=== PATIENT | male | born 1970 | race African-American/Black ===

== ENCOUNTER 2016-12-30 03:21 | Emergency (ER) | payer MEDICAID ==
[~2016-12-30] VITALS: Ht 172.7 cm; Wt 89.9 kg
[~2016-12-30 03:21] MED LIST: GLIP5TAB10 PO; METF10002 PO
[2016-12-30] MEDS ORDERED: ONDANSETRON 2MG/ML, 2ML IVPush ONE (03:30)
[2016-12-30] MEDS ORDERED: SODIUM CHLORIDE 0.9% 1,000ML IVBOLUS ONE (03:30)
[2016-12-30] MEDS ORDERED: SODIUM CHLORIDE FLUSH 10ML SYR IVF ONE (03:30)
[2016-12-30] MEDS ORDERED: ONDANSETRON 2MG/ML, 2ML ONE (03:31)
[2016-12-30 03:42] LABS: PH, VENOUS 7.347 pH (7.320-7.420)
[2016-12-30 03:54] LABS: ASPARTATE AMINO TRANSFERASE 47 U/L (15-37); BLOOD UREA NITROGEN 9 mg/dL (7-18)
[2016-12-30 04:54] LABS: DAU SCREEN DISCLAIMER
[2016-12-30 06:06] VITALS: BP 112/64
== END 2016-12-30 06:14 | disposition home or self-care (01) ==
LOC: ED 05:32
DX: R10.13 Epigastric pain (principal); K85.90 Acute pancreatitis without necrosis or infection, unspecified; K29.20 Alcoholic gastritis without bleeding; E11.65 Type 2 diabetes mellitus with hyperglycemia
CPT/HCPCS: 36415; 74020; 76700; 80053; 80307; 81003; 82010; 82803; 83690; 85025; 93005; 96361; 96374; 99285; J2405; J7030

== ENCOUNTER 2019-07-26 01:48 | Emergency (ER) | payer MEDICAID ==
[~2019-07-26] VITALS: Ht 180.3 cm; Wt 90.0 kg
[2019-07-26 02:31] LABS: BASOPHILS # (AUTO) 0.05 x10^3/uL (0-0.1); BASOPHILS % (AUTO) 1 % (0-1); EOSINOPHILS # (AUTO) 0.32 x10^3/uL (0-0.4); EOSINOPHILS % (AUTO) 3 % (1-7); LYMPHOCYTES % (AUTO) 33 % (22-44); MD NO; MEAN CORPUSCULAR HEMOGLOBIN 32.3 pg (27.5-34.5); MEAN CORPUSCULAR VOLUME 94.8 fL (81-97); MEAN PLATELET VOLUME 8.2 fL (7.4-10.4); MONOCYTES # (AUTO) 0.87 x10^3/uL (0.2-0.8); MONOCYTES % (AUTO) 8 % (2-9); NEUTROPHILS # (AUTO) 6.39 x10^3/uL (1.8-6.8); NEUTROPHILS % (AUTO) 56 % (42-75); PLATELET COUNT 296 x10^3/uL (130-400); RED BLOOD COUNT 4.78 x10^6/uL (4.38-5.82); RED CELL DISTRIBUTION WIDTH 14.3 % (9.4-14.8)
[2019-07-26 02:42] LABS: ALANINE AMINOTRANSFERASE 33 U/L (12-78); ALBUMIN 3.2 g/dL (3.4-5.0); ANION GAP 10 mmol/L (5-15); CHLORIDE 107 mmol/L (98-107); CREATININE 0.73 mg/dL (0.7-1.3)
[2019-07-26 02:45] LABS: ALKALINE PHOSPHATASE 110 U/L (45-117); BILIRUBIN,TOTAL 0.3 mg/dL (0.2-1.0); TOTAL PROTEIN 6.8 g/dL (6.4-8.2)
[2019-07-26 03:50] VITALS: BP 107/57
== END 2019-07-26 06:07 | disposition home or self-care (01) ==
LOC: ED 03:29
DX: K29.20 Alcoholic gastritis without bleeding (principal); F10.120 Alcohol abuse with intoxication, uncomplicated; Z72.9 Problem related to lifestyle, unspecified; E11.65 Type 2 diabetes mellitus with hyperglycemia; F17.200 Nicotine dependence, unspecified, uncomplicated
CPT/HCPCS: 36415; 80053; 80307; 83690; 85025; 93005; 99284

== ENCOUNTER 2020-08-06 21:28 | Emergency (ER) | payer MEDICAID ==
[~2020-08-06] VITALS: Ht 175.3 cm; Wt 92.9 kg
[2020-08-06] MEDS ORDERED: ONDANSETRON 2MG/ML, 2ML IVPush ONE (22:00)
[2020-08-06] MEDS ORDERED: ONDANSETRON 2MG/ML, 2ML ONE (22:09)
[2020-08-06] MEDS ORDERED: MORPHINE SULFATE 4 MG/ML, 1ML ONE (22:10)
[2020-08-06] MEDS: MORPHINE SULFATE 4 MG/ML, 1ML IVPush PRN (22:14)
[2020-08-06 22:18] LABS: BASOPHILS % (AUTO) 1 % (0-1); EOSINOPHILS % (AUTO) 4 % (1-7); LYMPHOCYTES % (AUTO) 36 % (22-44); MEAN CORPUSCULAR HEMOGLOBIN 30.7 pg (27.5-34.5); MEAN CORPUSCULAR HGB CONC 34.5 g/dL (33.2-36.2); MEAN PLATELET VOLUME 8.3 fL (7.4-10.4); MONOCYTES % (AUTO) 8 % (2-9); NEUTROPHILS % (AUTO) 52 % (42-75); PLATELET COUNT 307 x10^3/uL (130-400); RED BLOOD COUNT 5.31 x10^6/uL (4.38-5.82); RED CELL DISTRIBUTION WIDTH 14.2 % (9.4-14.8)
[2020-08-06 22:27] LABS: ALANINE AMINOTRANSFERASE 41 U/L (12-78); ALBUMIN 4.2 g/dL (3.4-5.0); ANION GAP 6 mmol/L (5-15); CALCIUM 9.3 mg/dL (8.5-10.1); CHLORIDE 111 mmol/L (98-107); CREATININE 0.98 mg/dL (0.7-1.3); MD NO
[2020-08-06 22:29] LABS: ALKALINE PHOSPHATASE 87 U/L (45-117); BILIRUBIN,TOTAL 0.3 mg/dL (0.2-1.0); TOTAL PROTEIN 8.1 g/dL (6.4-8.2)
[2020-08-06] MEDS ORDERED: OMNIPAQUE 350 MG/ML, 100ML BOTTLE ONE (23:00)
[2020-08-07] MEDS ORDERED: MORPHINE SULFATE 4 MG/ML, 1ML ONE (00:03)
[2020-08-07] MEDS: MORPHINE SULFATE 4 MG/ML, 1ML IVPush PRN (00:06)
[2020-08-07 00:07] VITALS: BP 108/71
--- NOTE | 2020-08-07 00:08 | NUR ---
PT LAYING IN BED WITH FRIEND AT PT SIDE, PT REQUESTED A ADDITIONAL DOSE OF PAIN MED. PT ON MONITOR WITH VSS. PT MEDICATED PER MAR. PROVIDER NOTIFIED
== END 2020-08-07 00:46 | disposition home or self-care (01) ==
LOC: ED 23:52
DX: R10.84 Generalized abdominal pain (principal); R11.2 Nausea with vomiting, unspecified; R19.7 Diarrhea, unspecified; F17.210 Nicotine dependence, cigarettes, uncomplicated; E11.9 Type 2 diabetes mellitus without complications
CPT/HCPCS: 36415; 74177; 80053; 83690; 85025; 96374; 96375; 96376; 99285; 99406; J2270; J2405; Q9967

== ENCOUNTER 2020-08-11 07:46 | Outpatient (CLI) | payer MEDICAID | END 2020-08-11 23:59 | disposition home or self-care (01) | LOC: CFH 07:46 | PROVIDERS: ATTEND Registered Nurse | DX: K21.9 Gastro-esophageal reflux disease without esophagitis (principal); R10.9 Unspecified abdominal pain; R19.7 Diarrhea, unspecified; R11.0 Nausea; Z68.30 Body mass index [BMI] 30.0-30.9, adult | CPT/HCPCS: 74018 ==

== ENCOUNTER 2020-08-22 12:59 | Outpatient (CLI) | payer MEDICAID | END 2020-08-22 23:59 | disposition home or self-care (01) | LOC: RAD 12:59 | PROVIDERS: ATTEND Registered Nurse | DX: R19.7 Diarrhea, unspecified (principal); R10.9 Unspecified abdominal pain; R11.0 Nausea; K21.9 Gastro-esophageal reflux disease without esophagitis; Z68.30 Body mass index [BMI] 30.0-30.9, adult | CPT/HCPCS: 74018; 76700 ==

== ENCOUNTER 2020-09-26 17:05 | Emergency (ER) | payer MEDICAID ==
[~2020-09-26] VITALS: Ht 175.3 cm; Wt 92.6 kg
[2020-09-26] MEDS ORDERED: ACETAMINOPHEN 500 MG TABLET PO ONE (17:30)
[2020-09-26] MEDS ORDERED: PANTOPRAZOLE 20MG TABLET PO ONE (17:30)
[2020-09-26] MEDS ORDERED: SIMV10TA18 PO (17:36)
[2020-09-26] MEDS ORDERED: PANT20TA2 PO (17:36)
[2020-09-26] MEDS ORDERED: TERB250T14 PO (17:36)
[2020-09-26] MEDS ORDERED: ERGO500017 PO (17:36)
[2020-09-26] MEDS ORDERED: INSU100V8 SQ (17:36)
[2020-09-26] MEDS ORDERED: TADA10TA PO (17:36)
[2020-09-26] MEDS ORDERED: TAMS-11 PO (17:36)
[2020-09-26] MEDS ORDERED: DULO30CA2 PO (17:36)
[2020-09-26] MEDS ORDERED: CYCL7.5T25 PO (17:36)
[2020-09-26] MEDS ORDERED: PANTOPRAZOLE 40MG TABLET ONE (17:41)
[2020-09-26] MEDS ORDERED: ACETAMINOPHEN 500 MG TABLET ONE (17:41)
[2020-09-26 18:03] VITALS: BP 92/64
[2020-09-26 18:09] LABS: BASOPHILS % (AUTO) 1 % (0-1); EOSINOPHILS % (AUTO) 3 % (1-7); LYMPHOCYTES % (AUTO) 30 % (22-44); MD NO; MEAN CORPUSCULAR HEMOGLOBIN 30.9 pg (27.5-34.5); MEAN CORPUSCULAR HGB CONC 34.8 g/dL (33.2-36.2); MEAN PLATELET VOLUME 8.1 fL (7.4-10.4); MONOCYTES % (AUTO) 9 % (2-9); NEUTROPHILS % (AUTO) 57 % (42-75); PLATELET COUNT 311 x10^3/uL (130-400); RED BLOOD COUNT 4.57 x10^6/uL (4.38-5.82); RED CELL DISTRIBUTION WIDTH 14.1 % (9.4-14.8)
[2020-09-26 18:12] LABS: ALANINE AMINOTRANSFERASE 36 U/L (12-78); ALBUMIN 3.8 g/dL (3.4-5.0); ANION GAP 7 mmol/L (5-15); CALCIUM 8.9 mg/dL (8.5-10.1); CHLORIDE 105 mmol/L (98-107)
[2020-09-26 18:14] LABS: ALKALINE PHOSPHATASE 70 U/L (45-117); BILIRUBIN,TOTAL 0.3 mg/dL (0.2-1.0); TOTAL PROTEIN 7.4 g/dL (6.4-8.2)
[2020-09-26] MEDS ORDERED: MAALOX/HYOSCYAMINE/LIDOCAINE 45 ML BTL ONE (18:45)
[2020-09-26] MEDS ORDERED: LIDODERM 5% PATCH TD ONE ×2 (18:45→19:00)
--- NOTE | 2020-09-26 18:51 | NUR ---
Patient given discharge instructions and Rx, they have confirmed that they understand the instructions. Patient ambulatory with steady gait.
[2020-09-26] MEDS ORDERED: MAALOX/HYOSCYAMINE/LIDOCAINE 45 ML BTL PO ONE (19:00)
--- NOTE | 2020-09-26 19:01 | NUR ---
Pt agrees with and understands discharge plan and instructions.
== END 2020-09-26 19:04 | disposition home or self-care (01) ==
LOC: ED 18:30
DX: S39.012A Strain of muscle, fascia and tendon of lower back, initial encounter (principal); K92.0 Hematemesis; K29.01 Acute gastritis with bleeding; E11.9 Type 2 diabetes mellitus without complications; F17.210 Nicotine dependence, cigarettes, uncomplicated; X58.XXXA Exposure to other specified factors, initial encounter; Y93.89 Activity, other specified; Y92.89 Other specified places as the place of occurrence of the external cause; Y99.8 Other external cause status
CPT/HCPCS: 36415; 80053; 83690; 85025; 99284; 99406

== ENCOUNTER 2020-10-11 09:19 | Outpatient (CLI) | payer MEDICAID ==
[~2020-10-11 09:19] MED LIST changes: +CYCL7.5T25 PO; +DULO30CA2 PO; +ERGO500017 PO; +INSU100V8 SQ; +PANT20TA2 PO; +SIMV10TA18 PO; +TADA10TA PO; +TAMS-11 PO; +TERB250T14 PO
== END 2020-10-11 23:59 | disposition home or self-care (01) ==
LOC: RAD 09:19
PROVIDERS: ATTEND Registered Nurse
DX: Z02.9 Encounter for administrative examinations, unspecified (principal)

== ENCOUNTER → 2020-10-30 | Outpatient (CLI) | payer MEDICAID | END | disposition home or self-care (01) | LOC: RAD 10:30 | PROVIDERS: ATTEND Registered Nurse | DX: K22.2 Esophageal obstruction (principal); R10.9 Unspecified abdominal pain; K57.10 Diverticulosis of small intestine without perforation or abscess without bleeding; R19.7 Diarrhea, unspecified; K21.9 Gastro-esophageal reflux disease without esophagitis; K29.80 Duodenitis without bleeding; R13.10 Dysphagia, unspecified | CPT/HCPCS: 78264; 82962; A9541 ==

== ENCOUNTER 2020-11-25 14:06 | Emergency (ER) | payer MEDICAID ==
[~2020-11-25] VITALS: Ht 175.3 cm; Wt 97.0 kg
--- NOTE | 2020-11-25 14:30 | NUR ---
Pt complains of bilateral diabetic neuropathy and that his pain medication, gabapentin is ineffective. He has been a diabetic for 10 years. He states compliance with insulin and metformin.
[2020-11-25] MEDS ORDERED: GABA600T7 PO (14:35)
--- NOTE | 2020-11-25 14:35 | NUR ---
Seen by [facility] and had a recent ultrasound, and needs surgery to the right leg.
[2020-11-25] MEDS ORDERED: OXYcodone/APAP 10/325MG TABLET ONE (14:55)
--- NOTE | 2020-11-25 14:58 | NUR ---
Pt medicated for pain, plan of care discussed.
[2020-11-25] MEDS ORDERED: OXYcodone/APAP 10/325MG TABLET HOMEMEDPO ONE (15:00)
[2020-11-25 15:01] LABS: BASOPHILS % (AUTO) 1 % (0-1); EOSINOPHILS % (AUTO) 3 % (1-7); LYMPHOCYTES % (AUTO) 21 % (22-44); MEAN CORPUSCULAR HEMOGLOBIN 31.2 pg (27.5-34.5); MEAN CORPUSCULAR HGB CONC 34.5 g/dL (33.2-36.2); MEAN PLATELET VOLUME 7.9 fL (7.4-10.4); MONOCYTES % (AUTO) 8 % (2-9); NEUTROPHILS % (AUTO) 67 % (42-75); PLATELET COUNT 359 x10^3/uL (130-400); RED BLOOD COUNT 4.44 x10^6/uL (4.38-5.82); RED CELL DISTRIBUTION WIDTH 14.6 % (9.4-14.8)
[2020-11-25 15:02] LABS: MD NO
[2020-11-25 15:08] LABS: ANION GAP 6 mmol/L (5-15); CALCIUM 9.2 mg/dL (8.5-10.1); CHLORIDE 107 mmol/L (98-107); CREATININE 1.02 mg/dL (0.7-1.3)
[2020-11-25 15:11] LABS: INTERNATIONAL NORMALIZED RATIO 0.91 (0.93-1.1); PROTHROMBIN TIME 9.8 Seconds (9.6-11.5)
--- NOTE | 2020-11-25 16:03 | NUR ---
US completed, pending results.
[2020-11-25 16:09] VITALS: BP 122/79
--- NOTE | 2020-11-25 16:09 | NUR ---
ERP at bedside. Plan of care discussed.
[2020-11-25] MEDS ORDERED: FUROSEMIDE 20 MG TABLET ONE (16:29)
[2020-11-25] MEDS ORDERED: FUROSEMIDE 20 MG TABLET PO ONE (16:30)
--- NOTE | 2020-11-25 16:45 | NUR ---
pt and undertsands the importance of diabetic diet, control, and lasix and postassium RX. as well as close follow up with vascular surgeon.
== END 2020-11-25 16:46 | disposition home or self-care (01) ==
LOC: ED 15:54
DX: R60.0 Localized edema (principal); E11.65 Type 2 diabetes mellitus with hyperglycemia; E11.40 Type 2 diabetes mellitus with diabetic neuropathy, unspecified
CPT/HCPCS: 36415; 80048; 82040; 85025; 85610; 85730; 93970; 99284